=== PATIENT | male | born 1975 | race Caucasian/White ===

== ENCOUNTER 2016-07-06 12:42 | Emergency (ER) ==
--- NOTE | 2016-07-06 14:16 | PROVIDER DOCUMENTATION ---
HPI-General Adult - General Source: patient - History of Present Illness -Gen Adult Nature of Presenting Problems: Pt is 40 y/o M presents to the ED with cough and congestion. Pt states symptoms started two days ago. Pt denies F. Pt states everyone is sick at home. Location of Pain/Injury: reports: generalized Pain Radiation: reports: no radiation Quality of Pain: reports: aching Severity: reports: mild Onset/Duration: reports: 2 days ago Timing: reports: still present, intermittent Context/Activities at Onset: reports: light activity Modifying Factors: improves with: nothing Associated Symptoms: reports: cough, sinus congestion/drainage (congestion) Similar Symptoms Previously?: Yes Recently seen or treated by another doctor?: No <Theresa Duncan - Last Filed: 07/06/16 14:13> <Lexy Novak - Last Filed: 07/06/16 14:41> - General Chief Complaint: Cold Symptoms Stated Complaint: HEADACHE/COUGH/DAR Time Seen by Provider: 07/06/16 14:07 Allergies/Adverse Reactions: Patient Allergies Allergy/AdvReac Type Severity Reaction Status Date / Time No Known Allergies Allergy Verified 04/07/16 20:57 Home Medications: Home Medication List Medication Instructions Recorded Confirmed Last Taken Type Albuterol Sulfate Inhaler 2 puff INH [id number] 07/24/13 04/07/16 04/07/16 05:30 History [Ventolin Hfa] Amoxicillin 500 mg PO BID #14 tablet 07/06/16 Unknown Rx Cetirizine [Zyrtec] 10 mg PO DAILY #20 tablet 07/06/16 Unknown Rx Methylprednisolone [Medrol Dosepak] 4 mg PO DIRECTED #1 package 07/06/16 Unknown Rx Review of Systems - Adult - REVIEW OF SYSTEMS - ADULT Constitutional: denies: chills, fever Eyes: denies: blurred vision, double vision Ears, Nose, Mouth & Throat: reports: sinus problem (congestion). denies: ear pain, nose pain, throat pain Cardiovascular: reports: irregular heart rate (marybel). denies: chest pain, heart murmur Respiratory: reports: cough. denies: shortness of breath, wheezing Gastrointestinal: denies: abdominal pain, diarrhea, nausea, vomiting Genitourinary: denies: dysuria, hematuria Musculoskeletal: denies: bone pain, joint swelling, neck pain Integumentary: denies: hives, itching Neurological: denies: dizziness/vertigo, headache/migraines Psychiatric: reports: no symptoms reported Endocrine: reports: no symptoms reported Hematologic/Lymphatic: reports: no symptoms reported Allergic/Immunologic: reports: no symptoms reported All Other Systems: Reviewed and Negative <DakotaTheresa - Last Filed: 07/06/16 14:13> Past History - Adult - PAST MEDICAL HISTORY-ADULT Review of Records: reports: Nursing Assessment Review, Medications Reviewed, Social history reviewed & non-contributory. Major Childhood Illnesses: reports: denies history Cardiovascular: reports: other (bradycardia) Respiratory: reports: asthma, COPD Gastrointestinal: reports: denies history Obstetrical/Gynecological: reports: denies history Genitourinary: reports: denies history Musculoskeletal: reports: denies history Neurological: reports: denies history Endocrine/Immune: reports: denies history Other Conditions: reports: denies history - PRIOR SURGERIES/PROCEDURES Surgical/Procedure History: reports: none - IMMUNIZATION STATUS Childhood Immunizations: See Nurse Assessment Flu Vaccine: See Nurse Assessment - FAMILY HISTORY Family History: reviewed, not pertinent - SOCIAL HISTORY Smoking: cigarettes, greater than 1 pack/day Provider spent 3-5 mins advising pt. on dangers of tobacco.: discussed smoking cessation Substance Use: denies Living Situation: family <Theresa Duncan - Last Filed: 07/06/16 14:13> Physical Exam-General - PHYSICAL EXAM-ADULT Initial Vital Signs Reviewed: Yes - CONSTITUTIONAL General Appearance: appears well, alert, no apparent distress - EYES Eyes: PERRL/EOMI, pink conjunctivae, fundi clear, no AV nicking - HEAD, EARS, NOSE, MOUTH & THROAT HENMT: normocephalic/atraumatic, moist mucous membranes, normal ENT inspection, TMs normal, pharynx normal - NECK Neck: non-tender, full range of motion, supple, normal inspection - RESPIRATORY Respiratory: chest non-tender, normal breath sounds, no pleuratic chest pain, no respiratory distress, no accessory muscle use, rhonchi - CARDIOVASCULAR Cardiovascular: normal peripheral pulses, no edema, no gallop, no JVD, no murmur , bradycardia - GASTROINTESTINAL (ABDOMEN) Abdominal Exam: normal bowel sounds, non tender, soft, no organomegaly, no pulsatile mass - LYMPHATIC Lymphatic: no adenopathy - MUSCULOSKELETAL Back Exam: normal inspection, no CVA tenderness, no vertebral tenderness Extremity: normal range of motion, non-tender, normal gait, normal inspection, no pedal edema, no calf tenderness, normal capillary refill - SKIN Integumentary: normal color, normal turgor, warm/dry - NEUROLOGIC Neurologic: grossly normal - PSYCHIATRIC Psych/Mental Status: normal mood/affect, oriented x 3 <Theresa Duncan - Last Filed: 07/06/16 14:13> Progress - PLAN OF CARE/RESULTS Progress/Plan/Lab Results: Discussed results and plan of care with patient. Patient agrees with plan and verbalizes understanding. Vital Signs Temp Pulse Resp BP Pulse Ox 07/06/16 13:01 98 F 51 L 18 134/63 99 No Known Allergies Allergy (Verified 04/07/16 20:57) Albuterol Sulfate Inhaler [Ventolin Hfa] 2 puff INH [id number] 07/24/13 Orders Category Date Time Status CHEST-2 VIEWS [RAD] Stat Exams 07/06/16 14:10 Taken - XRAY 1 XRAY Study: Chest XRAY Interpretation: NAD (Kareen) <Lexy Novak - Last Filed: 07/06/16 14:41> Departure <Theresa Duncan - Last Filed: 07/06/16 14:13> - Departure Time of Disposition Order: 14:39 Certified Medical Emergency: Emergent <Lexy Novak - Last Filed: 07/06/16 14:41> - Departure DIAGNOSIS: Sinus congestion, Cough Disposition: HOME 01 Condition: Stable Additional Instructions: Follow up with primary care physician Take medications as directed Return to ED for any concerns or worsening of symptoms ED Follow Up Instructions: You have been treated by a care provider in the Emergency Department. These instructions are being provided to you so you can have an understanding of how to care for yourself upon discharge. Upon discharge from the Emergency Department, you are responsible for making arrangements for follow-up care by a physician of your choice. Take all prescribed medications as directed. Return to the Emergency Department immediately for any new or worsening symptoms. You may call the Physician Referral phone number at [phone] to obtain a list of Physicians who are taking new patients. Prescriptions: Amoxicillin 500 mg PO BID #14 tablet Methylprednisolone [Medrol Dosepak] 4 mg PO DIRECTED #1 package Cetirizine [Zyrtec] 10 mg PO DAILY #20 tablet Attestation - Scribe Verification/Attestation Scribe:: Theresa Duncan Acting as Scribe for:: Lexy Novak Scribe documention review:: This chart was documented by a scribe and accurately reflects the service the provider performed and the decisions made by the provider. <Theresa Duncan - Last Filed: 07/06/16 14:13> - Physician/ LEONOR Attestation Patient care was provided by Advanced Practice Provider:: Yes Advanced Practice Provider:: Lexy Novak Advanced Practice Provider documentation review:: The Mid-level provider documentation, treatment plan and medical decision making was reviewed by the physician who agrees with all treatment and medical decision making by the MLP. <Lexy Novak - Last Filed: 07/06/16 14:41> Physician Attestation
[2016-07-06] MEDS ORDERED: AMOXIL PO ONE (14:39)
[2016-07-06] MEDS ORDERED: ZYRTEC PO ONE (14:39)
[2016-07-06] MEDS ORDERED: DECADRON IM ONE (14:39)
[2016-07-06 14:52] VITALS: BP 122/76
--- NOTE | 2016-07-06 18:13 | Diag Imaging Result Document ---
PROCEDURE NAME: CHEST-2 VIEWS - 07/06/2016 CHEST X-RAY 2 VIEWS: COMPARISON: 04/07/2016. FINDINGS: The lungs are normally expanded and clear. Heart size and mediastinal contours are normal. No pneumothorax or pleural effusion. IMPRESSION: Negative exam.
== END 2016-07-06 15:10 | disposition home or self-care (01) ==
LOC: P.ED 12:42
DX: R09.81 Nasal congestion (principal); R05 Cough; R51 Headache; R00.1 Bradycardia, unspecified; J45.909 Unspecified asthma, uncomplicated; J44.9 Chronic obstructive pulmonary disease, unspecified; F17.210 Nicotine dependence, cigarettes, uncomplicated; Z71.6 Tobacco abuse counseling
CPT/HCPCS: 71020

== ENCOUNTER 2016-12-23 12:40 | Inpatient (IN) ==
[2016-12-23] MEDS: PROTONIX IV SCH (13:30)
[2016-12-23] MEDS ORDERED: ASPIRIN PO STA (13:30)
[2016-12-23] MEDS ORDERED: NITROGLYCERIN SL PRN (13:30)
--- NOTE | 2016-12-23 13:43 | PROVIDER DOCUMENTATION ---
HPI-Chest Pain - General Chief Complaint: Chest Pain Stated Complaint: PRESSURE IN CHEST/ELEVATED HEART RATE Time Seen by Provider: 12/23/16 13:09 Source: patient Allergies/Adverse Reactions: Patient Allergies Allergy/AdvReac Type Severity Reaction Status Date / Time No Known Allergies Allergy Verified 09/28/16 16:30 Home Medications: Home Medication List Medication Instructions Recorded Confirmed Last Taken Type Albuterol Sulfate Inhaler 2 puff INH [id number] 07/24/13 09/28/16 1 Week Ago History [Ventolin Hfa] Cyclobenzaprine [Flexeril] 10 mg PO TID #20 tablet 09/28/16 Unknown Rx Meloxicam [Mobic] 7.5 mg PO DAILY PRN PRN #15 tablet 09/28/16 Unknown Rx - History of Present Illness-CP Nature of Presenting Problem: Mrs. Saab presents today with chest pain - located on the left side without radiation to the left arm, neck or jaw. States he was asleep and the chest pain woke him up from sleep around 3 am. At that time he felt as "if his heart will jump out of his chest". Lasted about an hour and it was sharp in nature. He is a 1.5 pack a day smoker. Previous history of sinus bradycardia worked up at [facility]. No previous such episodes that woke him up from sleep. 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 No pain present at this time but complains of chest discomfort. Location: reports: other (left anterior chest wall) Chest Pain Radiation: reports: no radiation Quality of Pain: reports: sharp, stabbing Severity in ED: mild Onset/Duration: abrupt, this morning Timing: still present (mostly described as discomfort.) Review of Systems - Adult - REVIEW OF SYSTEMS - ADULT Constitutional: reports: no symptoms reported. denies: chills, fever Eyes: reports: no symptoms reported Ears, Nose, Mouth & Throat: reports: no symptoms reported Cardiovascular: reports: see HPI, chest pain, irregular heart rate, palpitations . denies: edema, heart murmur, orthopnea, poor circulation, syncope Respiratory: reports: see HPI, chronic cough. denies: hemoptysis, wheezing Gastrointestinal: reports: no symptoms reported Genitourinary: reports: no symptoms reported Musculoskeletal: reports: no symptoms reported Integumentary: reports: no symptoms reported Neurological: reports: no symptoms reported Psychiatric: reports: no symptoms reported Endocrine: reports: no symptoms reported Hematologic/Lymphatic: reports: no symptoms reported Allergic/Immunologic: reports: no symptoms reported All Other Systems: Reviewed and Negative Past History - Adult - PAST MEDICAL HISTORY-ADULT Review of Records: reports: Old Records Reviewed (bradycardia--worked up at [facility].), Nursing Assessment Review, Medications Reviewed, Social history reviewed & non-contributory. Major Childhood Illnesses: reports: denies history Cardiovascular: reports: other (bradycardia) Respiratory: reports: asthma, COPD Gastrointestinal: reports: denies history Obstetrical/Gynecological: reports: denies history Genitourinary: reports: denies history Musculoskeletal: reports: denies history Neurological: reports: denies history Psychiatric: reports: denies history Endocrine/Immune: reports: denies history Other Conditions: reports: denies history - PRIOR SURGERIES/PROCEDURES Surgical/Procedure History: reports: none - IMMUNIZATION STATUS Childhood Immunizations: See Nurse Assessment Flu Vaccine: See Nurse Assessment - FAMILY HISTORY Family History: reviewed, not pertinent - SOCIAL HISTORY Smoking: cigarettes Provider spent 3-5 mins advising pt. on dangers of tobacco.: Discussed manners to quit use, and f/u contacts for add'l counseling. Physical Exam-General - PHYSICAL EXAM-ADULT Initial Vital Signs Reviewed: Yes - CONSTITUTIONAL General Appearance: appears well, alert, no apparent distress. negative: severe distress - EYES Eyes: PERRL/EOMI - HEAD, EARS, NOSE, MOUTH & THROAT HENMT: normocephalic/atraumatic, moist mucous membranes - NECK Neck: non-tender, full range of motion - RESPIRATORY Respiratory: chest non-tender, lungs clear - CARDIOVASCULAR Cardiovascular: normal peripheral pulses (sinus bradycardia) - GASTROINTESTINAL (ABDOMEN) Abdominal Exam: normal bowel sounds, non tender - LYMPHATIC Lymphatic: no adenopathy - MUSCULOSKELETAL Back Exam: normal inspection Extremity: normal range of motion - SKIN Integumentary: normal color - NEUROLOGIC Neurologic: grossly normal - PSYCHIATRIC Psych/Mental Status: normal mood/affect, normal thought content, normal thought process Progress - PLAN OF CARE/RESULTS Progress/Plan/Lab Results: Vital Signs - 8 hr 12/23/16 12:48 Temperature 98.5 F Pulse Rate 49 L Respiratory Rate 18 Blood Pressure 135/75 O2 Sat by Pulse Oximetry 99 Laboratory Results - last 24 hr 0812/23/16 12/23/16 13:39 13:39 13:39 WBC RBC Hgb Hct MCV MCH MCHC RDW Std Deviation Plt Count MPV Immature Gran % (Auto) Neut % (Auto) Lymph % (Auto) [place] % (Auto) Eos % (Auto) Baso % (Auto) Immature Gran # (Auto) Neut # (Auto) Lymph # (Auto) [place] # (Auto) Eos # (Auto) Baso # (Auto) PT 10.3 INR 0.98 PTT (Actin FS) 26.0 Sodium 139 Potassium 4.2 Chloride 103 Carbon Dioxide 26 Anion Gap 10 BUN 13 Creatinine 1.1 Estimated GFR/1.73 m2 > 60 BUN/Creatinine Ratio 12 Glucose 84 Calculated Osmolality 277 Calcium 9.2 Total Bilirubin 0.41 AST 13 ALT 13 Alkaline Phosphatase 62 Creatine Kinase Troponin T Mhr-R-Lrruguwulwr Pept 75 Total Protein 7.1 Albumin 4.4 Globulin 2.7 Albumin/Globulin Ratio 1.6 TSH 12/23/16 12/23/16 12/23/16 13:39 13:39 13:39 WBC RBC Hgb Hct MCV MCH MCHC RDW Std Deviation Plt Count MPV Immature Gran % (Auto) Neut % (Auto) Lymph % (Auto) [place] % (Auto) Eos % (Auto) Baso % (Auto) Immature Gran # (Auto) Neut # (Auto) Lymph # (Auto) [place] # (Auto) Eos # (Auto) Baso # (Auto) PT INR PTT (Actin FS) Sodium Potassium Chloride Carbon Dioxide Anion Gap BUN Creatinine Estimated GFR/1.73 m2 BUN/Creatinine Ratio Glucose Calculated Osmolality Calcium Total Bilirubin AST ALT Alkaline Phosphatase Creatine Kinase 169 Troponin T < 0.010 Htq-F-Kwshohsunfs Pept Total Protein Albumin Globulin Albumin/Globulin Ratio TSH 1.86 12/23/16 13:39 WBC 8.52 RBC 4.89 Hgb 14.8 Hct 42.0 MCV 85.9 MCH 30.3 MCHC 35.2 RDW Std Deviation 12.4 Plt Count 262 MPV 11.7 H Immature Gran % (Auto) 0.0 Neut % (Auto) 67.5 Lymph % (Auto) 22.8 [place] % (Auto) 5.9 Eos % (Auto) 3.3 Baso % (Auto) 0.5 Immature Gran # (Auto) 0.00 Neut # (Auto) 5.76 Lymph # (Auto) 1.94 [place] # (Auto) 0.50 Eos # (Auto) 0.28 Baso # (Auto) 0.04 PT INR PTT (Actin FS) Sodium Potassium Chloride Carbon Dioxide Anion Gap BUN Creatinine Estimated GFR/1.73 m2 BUN/Creatinine Ratio Glucose Calculated Osmolality Calcium Total Bilirubin AST ALT Alkaline Phosphatase Creatine Kinase Troponin T Oeg-J-Wppzmkjwtng Pept Total Protein Albumin Globulin Albumin/Globulin Ratio TSH Orders Category Date Time Status Regular Diet Diet 12/23/16 15:55 Active CHEST-2 VIEWS [RAD] Stat Exams 12/23/16 13:31 Completed CBC WITH ELECTRONIC DIFF [HEME] Stat Lab 12/23/16 13:39 Completed CK PROFILE [SP CHEM] Q8H Lab 12/23/16 13:39 Completed CK PROFILE [SP CHEM] Q8H Lab 12/23/16 21:45 Ordered CK PROFILE [SP CHEM] Q8H Lab 12/24/16 05:45 Ordered COMPREHENSIVE METABOLIC PANEL [CHEM] Stat Lab 12/23/16 13:39 Completed DIRECT LDL [LIPIDS] Routine Lab 12/24/16 06:00 Ordered PRO B-NATRIURETIC PEPTIDE Stat Lab 12/23/16 13:39 Completed PROTIME WITH INR [COAG] Stat Lab 12/23/16 13:39 Completed PTT [COAG] Stat Lab 12/23/16 13:39 Completed TROPONIN T Q8H Lab 12/23/16 13:39 Completed TROPONIN T Q8H Lab 12/23/16 21:45 Ordered TROPONIN T Q8H Lab 12/24/16 05:45 Ordered TSH Stat Lab 12/23/16 13:39 Completed URINALYSIS W/POSS RFLX CULT-1 [URINALYSIS] Stat Lab 12/23/16 16:19 Uncollected URINE DRUG SCREEN Stat Lab 12/23/16 16:19 Uncollected Aspirin Med 12/23/16 13:30 Discontinued 325 mg PO STAT STA Nitroglycerin Sl [Nitroglycerin] Med 12/23/16 13:30 Active 0.4 mg SL Q5M PRN PRN Pantoprazole [Protonix] Med 12/23/16 13:30 Active 40 mg IV Q12H Sodium Chloride 0.9% Med 12/23/16 13:30 Active 10 ml INJ DIRECTED EKG [EKG] Stat Ther 12/23/16 12:47 Draft Transfer/Admit Order [TRANSFER] Routine Transfer 12/23/16 16:12 Ordered Result Diagrams: 12/23/16 13:39 12/23/16 13:39 - REASSESSMENT Reassessment #1 Time Reassessed: 15:26 (Aicha continues to state that he feels pressure in his chest. Labs WNL at this time. ) Status: unchanged Reassessment #2 Time Reassessed: 16:31 (Patient will be admitted to Dr. Evangelista) Status: unchanged - EKG 1 Time of EKG reading by physician:: 12:57 EKG Interpretation (*Must complete 3 of following elements*): Abnormal Rate: 43 Rhythm: sinus Prior EKG Comparison: unchanged from prior (sinus marybel --similar to EKG from 2015) - CONSULTS/PCP/HOSPITALIST Notification #1 *Consult/PCP/Hospitalist*: Dr. Gupta - Cardiology Time Discussed: 15:06 Reason/Comments: Sinus bradycardia with symptoms of fatigue and pressure in chest. Consult Disposition: other (Stated to call hospitalist and if considered to consult Dr. Gupta via hospitalist.) #2 Consult: Rianna ROMERO for Hospitalist service Time Discussed: 15:29 (Discussed to admit in observation) Consult Disposition: Will see in ED Departure - Departure Date of Disposition Decision: 12/23/16 Time of Disposition Decision: 16:31 DIAGNOSIS: Chest pain at rest Disposition: ADMITTED INPATIENT 09 Certified Medical Emergency: Emergent Condition: Fair Referrals and Follow-Ups: Rosendo Skinner [Primary Care Provider] - - Critical Care Note This patient required my direct & personal management of CC.: No Attestation - Physician/ LEONOR Attestation Patient care was provided by Advanced Practice Provider:: No The physician spent face to face time with patient:: Yes Advanced Practice Provider documentation review:: Supervising physician onsite and consulted in the evaluation and care of this patient. The physician did have a face to face encounter with the patient.
--- NOTE | 2016-12-23 13:48 | EKG Report ---
Test Performed on : 12/23/2016 12:55:14 PM Test Reason : CP Blood Pressure : / mmHG Vent. Rate : 043 BPM Atrial Rate : 043 BPM P-R Int : 164 ms QRS Dur : 088 ms QT Int : 478 ms P-R-T Axes : 059 051 041 degrees QTc Int : 403 ms Marked sinus bradycardia. Abnormal ECG When compared with ECG of 07-APR-2016 21:12, No significant change was found Unconfirmed Result
--- NOTE | 2016-12-23 13:53 | Diag Imaging Result Doc PS360 ---
CHEST-2 VIEWS - 12/23/2016 INDICATION: Chest Pain TECHNIQUE: COMPARISON: 09/28/2016 FINDINGS: The lungs are normally expanded and clear. Heart size and mediastinal contours are normal. No pneumothorax or pleural effusion. IMPRESSION: Negative exam. Electronically signed by Jn Mathur 12/23/2016 1:50 PM
[2016-12-23 13:57] LABS: INR 0.98; PROTIME 10.3 Seconds (9.2-11.7)
[2016-12-23 14:07] LABS: AGAP 10; ALBUMIN 4.4 g/dL (3.5-5.0); ALKALINE PHOSPHATASE 62 U/L (32-122); BUN 13 mg/dL (8-22); CALCIUM 9.2 mg/dL (8.8-10.2); CHLORIDE 103 mmol/L (98-107); COSMO 277; GOT 13 U/L (10-34); GPT 13 U/L (10-44); POTASSIUM 4.2 mmol/L (3.5-5.1); SODIUM 139 mmol/L (136-145); TCO2 26 mmol/L (25-35); TOTAL BILIRUBIN 0.41 mg/dL (0.20-1.00); TOTAL PROTEIN 7.1 g/dL (6.3-8.3)
[2016-12-23] MEDS: SODIUM CHLORIDE 0.9% INJ SCH (14:29)
[2016-12-23 15:34] LABS: MANUAL DIFF NEEDED? NO
[2016-12-23 16:01] LABS: BASO% 0.5 % (0.0-0.8); EOS# 0.28 X1000 (0.0-0.7); EOS% 3.3 % (0.0-10.0); HEMOGLOBIN 14.8 g/dL (14.0-18.0); LYMPH# 1.94 X1000 (1.2-3.4); LYMPH% 22.8 % (20.5-51.1); MCH 30.3 PG (27-31); MCHC 35.2 g/dL (33-37); MCV 85.9 FL (81-99); MONO% 5.9 % (1.7-9.3); MPV 11.7 FL (7.4-10.4); NEUT% 67.5 % (42.2-75.2); PLT 262 X1000 (130-400); RBC 4.89 XMIL (4.7-6.1)
--- NOTE | 2016-12-23 17:06 | HISTORY AND PHYSICAL ---
HISTORY: A 41-year-old, he presented to the emergency room this evening. He stated about 6 o'clock this morning he noted palpitations, seemed to be rapid and he had pressure-type chest pain, and it seemed to hurt with pulsations. He denies fever or chills. He thinks that these palpitations lasted over an hour and he had some residual chest pain. No radiation into his arm or into his neck, but he described an episode previously in the last couple of weeks where he hurt on his simply left side and then he had some shooting pain on his right side from his arm and his right leg, and they would last for a while and go away. No focal neurologic deficits appreciated. He denies any pleuritic pain. No cough or sputum production. He has not had any chest trauma. 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 He denies any weight gain or loss. PAST MEDICAL HISTORY: Pretty unremarkable. For last 3 years, he has been he has been concerned about his weakness and fatigue and his primary care physician checked an EKG and found bradycardia. He has been seen and evaluated by Dr. 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 I see where he has had an echocardiogram on 02/14/2015. At that time, essentially normal echocardiogram, ejection fraction 60-65%, normal left ventricular cavity size. No valvular dysfunction. He had a myocardial perfusion test on 06/19/2015 and it was a negative test and a good test. Left ventricular ejection fraction estimated at 71% at that time. Normal myocardial perfusion. Did not see any sign of diastolic dysfunction. MEDICATIONS: He is not on medication. Does not like to take medications. 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 He is . He says he smoked for many years. Quit for a while, and then recently started back a pack and a half. He denies alcohol except for occasional on the weekend, maybe 1 or 2 beers, in his words "to flush out his kidneys". REVIEW OF SYSTEMS: General: No weight gain or loss. No fever or chills. His main complaint is just fatigue and poor energy level. He does not have a problem at work. He states he makes himself get his work done. HEENT: Denies any change in his hearing or taste. Oral and nasal mucosa, upper airway, no complaints. Respiratory: No increased work of breathing or dyspnea. No pleuritic pain. No cough, sputum production. Cardiovascular: As above. Tachycardiac palpitations that seem to be regular this morning, but has been diagnosed with a sinus bradycardia for the last 3 years. GI/: No gross hematochezia. No complaints of change in bowels. No gross hematuria or dysuria. Musculoskeletal/Neurologic: No focal complaints. No injuries. No particular arthralgia or myalgia or muscle spasms. PHYSICAL EXAMINATION: VITAL SIGNS: Temperature 98.5 degrees, pulse 49. EKG showed a pulse of 45, respirations 18, blood pressure 135/75, O2 saturation 99%. Weight 160 pounds. HEENT: Oral and nasal mucosa moist and red. Conjunctivae unremarkable. No thyromegaly and no thyroid nodules. Carotid pulses, radial pulses and femoral pulses 2+ and symmetrical. LUNGS: Clear in all lung christenesn, anterolateral and posterior. CARDIOVASCULAR: Regular rhythm and rate. PMI nondisplaced. No murmur or S3 appreciated. ABDOMEN: Soft, nontender. Positive bowel sounds all quadrants. SKIN: Warm and dry. No sign of rashes. VASCULATURE: As I stated, carotid, radial, femoral pulses 2+ and symmetrical. No abdominal or femoral bruits. No carotid bruits appreciated. LABORATORY DATA AND IMAGING: White count 8520, hematocrit 42, platelet count 262,000. Sodium 139, potassium 4.2, chloride 103, bicarbonate 26, BUN 13, creatinine 1.1. TSH is 1.86, albumin 4.4, ProTime 10.3, PTT is 26. His chest x-ray, negative exam, lungs normal expanded and clear. Heart and mediastinal contours were normal. No pneumothorax or pleural effusions. EKG shows sinus bradycardia. No ST-segment deviation. No ectopy appreciated. ASSESSMENT AND PLAN: 1. Sinus bradycardia. I am not sure if this is symptomatic. He seems to have pretty good work tolerance, but he is complaining of fatigue. He has already been evaluated in the past per Dr. Louise in [place]. He did have chest pain this morning. I do not see any evidence to suggest it is cardiac ischemia as well as low risk factors. We will check his cholesterol in the morning. We will check serial CPK and troponin, serial Electrocardiograms. I ask Cardiology to see. Plan tentatively to do a Lexiscan GXT in the morning and check an echocardiogram, although he has had an echocardiogram in 2014. We will check another one. He had a myocardial perfusion scan in May 2015, which was normal. 2. Fatigue and poor energy. We will check his thyroid, B12 and folate. We will check a.m. cortisol level and see if he has any evidence of hypothyroidism. Based on his laboratory, he has no sign of anemia. Electrolytes unremarkable and his renal function appears to be good. 3. Nutritional state looks good. Albumin 4.4. He has not lost any weight. He is complaining he is hungry. He has not eaten most of the day. He reports that he does not eat breakfast. He eats lunch and supper. Eats 2 meals a day. cc: Kishore Evangelista MD
--- NOTE | 2016-12-23 17:49 | CONSULTATION ---
DATE OF CONSULTATION: 12/23/2016 HISTORY OF PRESENT ILLNESS: Mr. Thaddeus Saab is a 41-year-old gentleman who last year or a year before had seen us and had a stress test done at [place] which was normal and subsequently he had been doing well. He stopped smoking and he has restarted smoking. He comes with complaints of having sharp episodes of chest pain. These episodes he describes as sharp and at times pressure-like sensation. He also has shortness of breath from COPD. He uses inhalers on a p.r.n. basis. Symptoms of chest pain not radiating to the back or down the arm. Describes as pressure-like, retrosternal. There are no palpitations. There is no dizziness or syncope. REVIEW OF SYSTEMS: A 14 point review of systems was done.GI: There is no history of nausea, vomiting, diarrhea. There is no history of hematemesis or melena. Central nervous system: No focal weakness to suggest a CVA or TIA. Genitourinary: There is no dysuria or hematuria. Respiratory: There is no history of cough, expectoration, hemoptysis. There is no history of fevers or chills. SOCIAL HISTORY: Patient smokes. There is no history of alcohol abuse. PAST MEDICAL HISTORY: 1. He has COPD. In the past he has been on Spiriva hand-held and fluticasone propionate inhalers. 2. Bradycardia which he has been having since 2009. ALLERGIES: He is not known to be allergic to any medications. CURRENT MEDICATIONS: At home included also Protonix. PHYSICAL EXAMINATION: Vital Signs: Blood pressure was 135/75. Cardiovascular symptoms: Jugular venous pressure was normal. First and second heart sounds were heard. There is no S3, S4, or gallop. Respiratory System: Normal air entry. There are no crepitations or rhonchi. Abdomen: Soft, nontender. There was no guarding or rigidity. Bowel sounds heard. Central nervous system: Alert and moving all 4 extremities. Extremities: Examination of the extremities revealed no pedal edema. HEENT: Atraumatic, normocephalic. Pupils were equal and reacting to light. ASSESSMENT AND PLAN: 1. Mr. Thaddeus Saab has a history of chronic obstructive pulmonary disease, was on inhalers in the past, and has gastroesophageal reflux disease, comes with complaints of chest pain sharp in character, at times pressure-like sensation. He had quit smoking but restarted smoking. I have advised him to stop smoking. 2. As far as and further assessment is concerned, cardiac enzymes were negative. We will set him up to undergo a CT angiogram of his coronary arteries to rule out obstructive coronary artery disease. Will also get an echocardiogram to assess cardiac and valvular function. He is on aspirin and his electrocardiogram revealed sinus bradycardia. He has had bradycardia in the past since 2009. Thank you for the consult. We will follow the hospital course. cc: Torey Gupta MD
[2016-12-23 17:55] LABS: URINE CULTURE NEEDED? NO; URINE MICRO REVIEW NEEDED? NO; URINE SOURCE CLEAN CATCH
[2016-12-23 18:03] LABS: BILIRUBIN URINE NEGATIVE (NEGATIVE); BLOOD URINE NEGATIVE (NEGATIVE); COLOR YELLOW; GLUCOSE URINE NEGATIVE (NEGATIVE); LEUKOCYTES URINE NEGATIVE (NEGATIVE); NITRITE URINE NEGATIVE (NEGATIVE); PROTEIN URINE NEGATIVE (NEGATIVE); SP GRAVITY URINE 1.015; TURBIDITY URINE CLEAR (CLEAR); UROBILINOGEN URINE NORMAL (NORMAL)
[2016-12-23 18:05] LABS: UR EPITHELIAL CELLS <10 /HPF (<10); URINE BACTERIA NEGATIVE /HPF; URINE RBC <10 /HPF (<10); URINE WBC <10 /HPF (<10)
[2016-12-23 18:38] LABS: UR AMPHETAMINES QUAL NONE DETECTED (NONE DETECT); UR BARBITUATES QUAL NONE DETECTED (NONE DETECT); UR BENZODIAZEPIN QUAL NONE DETECTED (NONE DETECT); UR CANNABINOIDS QUAL NONE DETECTED (NONE DETECT); UR COCAINE QUAL NONE DETECTED (NONE DETECT); UR METHADONE QUAL NONE DETECTED (NONE DETECT); UR OPIATES QUAL NONE DETECTED (NONE DETECT); UR OXYCODONE QUAL NONE DETECTED (NONE DETECT); UR PCP QUAL NONE DETECTED (NONE DETECT)
[2016-12-23] MEDS ORDERED: ZOFRAN IV PRN (19:19)
[2016-12-23] MEDS ORDERED: TYLENOL PO PRN (19:19)
--- NOTE | 2016-12-23 21:18 | EKG Report ---
Test Performed on : 12/23/2016 8:15:31 PM Test Reason : chest pain Blood Pressure : / mmHG Vent. Rate : 041 BPM Atrial Rate : 041 BPM P-R Int : 000 ms QRS Dur : 090 ms QT Int : 484 ms P-R-T Axes : 000 059 047 degrees QTc Int : 399 ms sinus bradycardia Junctional ST depression, probably normal Abnormal ECG When compared with ECG of 23-DEC-2016 12:55, (Unconfirmed) Confirmed by Jimi Hughes MD ([id number]) on 12/30/2016 6:52:58 PM
[2016-12-24] MEDS: PROTONIX IV SCH ×2 (01:38→14:02)
[2016-12-24 06:09] LABS: MANUAL DIFF NEEDED? NO
[2016-12-24 06:21] LABS: BASO% 0.6 % (0.0-0.8); EOS# 0.35 X1000 (0.0-0.7); EOS% 4.8 % (0.0-10.0); HEMATOCRIT 42.6 % (42.0-52.0); HEMOGLOBIN 14.7 g/dL (14.0-18.0); IMM GRAN# 0.01 X1000 (0.0-0.04); IMM GRAN% 0.1 % (0.0-0.5); LYMPH# 1.59 X1000 (1.2-3.4); MCH 29.7 PG (27-31); MCHC 34.5 g/dL (33-37); MCV 86.1 FL (81-99); MONO% 6.9 % (1.7-9.3); MPV 11.1 FL (7.4-10.4); NEUT% 65.6 % (42.2-75.2); PLT 233 X1000 (130-400); RBC 4.95 XMIL (4.7-6.1)
[2016-12-24 06:30] LABS: HEMOGLOBIN A1C 4.8 % (4.8-6.0)
[2016-12-24 06:33] LABS: AGAP 10; ALBUMIN 4.2 g/dL (3.5-5.0); ALKALINE PHOSPHATASE 59 U/L (32-122); BUN 16 mg/dL (8-22); CALCIUM 8.8 mg/dL (8.8-10.2); CHLORIDE 104 mmol/L (98-107); COSMO 275; GOT 10 U/L (10-34); GPT 12 U/L (10-44); POTASSIUM 4.3 mmol/L (3.5-5.1); SODIUM 137 mmol/L (136-145); TCO2 23 mmol/L (25-35); TOTAL PROTEIN 6.8 g/dL (6.3-8.3)
[2016-12-24 06:41] LABS: FREE T4 1.04 ng/dL (0.93-1.70)
[2016-12-24 07:28] LABS: INR 0.93 (0.86-1.15); PROTIME 13.2 Seconds (12.1-15.5)
[2016-12-24 07:29] LABS: PTT PL 28.6 Seconds (22.6-43.9)
[2016-12-24] MEDS ORDERED: LOVENOX SUBQ SCH (08:00)
--- NOTE | 2016-12-24 08:37 | Diag Imaging Result Doc PS360 ---
EXAM: CT ANGIOGRAM HEART W/WO CONT INDICATION: chest pain TECHNIQUE: Cardiology over read COMPARISON: None. FINDINGS: The heart is not enlarged. The aorta is grossly unremarkable. Although the contrast bolus is not optimized for the pulmonary arteries, no central luminary artery filling defects are identified. Limited views of the lung parenchyma reveals a cluster of small nodules in the anterior segment of the right upper lobe that can be seen on image 48 of series 5. The largest nodule measures up to 5.4 mm. They exhibit a slight tree-in-bud configuration. Statistically, they are very likely inflammatory nodules/noncalcified granulomata. If clinically warranted, consider follow-up based on Fleischner Society criteria. IMPRESSION: 1.Small cluster of noncalcified nodules in the right upper lobe as detailed above. 2.Please see cardiology report for coronary artery details. Electronically signed by Ramos Pretty 12/24/2016 8:35 AM
[2016-12-24] MEDS ORDERED: ASPIRIN PO SCH ×2 (09:00)
[2016-12-24] MEDS ORDERED: NITROGLYCERIN LINGUAL SPRAY ONE (12:06)
--- NOTE | 2016-12-24 13:18 | CTA CORONARY ---
PROCEDURE NAME: - PROCEDURE: CT coronary angiography, CT left ventriculography. TECHNIQUE: Informed consent was obtained from the patient. Intravenous access was established. 90 mL of iodinated contrast was given per standard protocol. Images were acquired at 0.6 mm multislice intervals, presented for review. FINDINGS: 1. Calcium score was 0. Left ventricular ejection fraction 58%. Pulmonary veins, 2 superior, 2 inferior, were normal. 2. Pulmonary artery from the proximal presented segment did not reveal any evidence of obstruction. 3. Ascending aorta was normal. There was no dissection noted. 4. Aortic valve leaflets are trileaflet. 5. Left atrium was normal. CORONARY ANATOMY: 1. The left main artery was a large vessel and was normal. The left anterior descending artery in its proximal and distal portion was normal and distally coursed around to the apex slightly tortuous without any significant stenosis. First diagonal artery was a small caliber long vessel and was normal. The 2nd diagonal artery was a small caliber vessel long and normal. 2. The circumflex arterial system revealed the proximal circumflex artery was normal. Distally the circumflex artery was a moderate size long vessel without any significant stenosis. 3. There was tiny obtuse marginal artery 1 and 2 which were normal. 4. The right coronary artery was a dominant vessel. The ostium of the right coronary artery had some luminal irregularities. 5. The mid distal right coronary artery was normal. Further distally, the right coronary artery gave rise to a posterior descending artery, which was a small to moderate size vessel, long without any significant stenosis. The posterolateral branch of the right coronary artery was a small-caliber vessel and normal. CONCLUSIONS: 1. No significant obstructive coronary artery disease. 2. Left ventricular ejection fraction 58%. 3. Calcium score was 0. 4. Right coronary artery was dominant. Has some ostial minor luminal irregularities. 5. Left main was normal. Left anterior descending artery was normal. The circumflex arterial system was a moderate-sized vessel, long, without any significant stenosis. RECOMMENDATIONS: Medical management, risk factor modification. cc: Torey Gupta MD
[2016-12-24] MEDS: SODIUM CHLORIDE 0.9% INJ SCH (14:02)
[2016-12-24 14:41] VITALS: BP 105/78
--- NOTE | 2016-12-24 16:30 | ECHO REPORT ---
ORDER DATE: 12/24/2016 INTERPRETING PHYSICIAN: Dr. Torey Gupta ECHOCARDIOGRAPHIC MEASUREMENTS: Interventricular septum: 1.0 cm. Left ventricular posterior wall: 0.8 cm. Diastolic diameter: 4.9 cm. Left atrium: 2.9 cm. Aortic root: 3 cm. SUMMARY OF THE 2-DIMENSIONAL IMAGIN. Normal left ventricular cavity size. Estimated ejection fraction of 55-60%. 2. Aortic valve leaflets are trileaflet. Mitral valve was normal. Tricuspid valve was normal. Pulmonic valve was normal. 3. There is no aortic stenosis. There is trivial aortic regurgitation. There is mild mitral regurgitation. Mild tricuspid regurgitation. Peak velocity across the tricuspid valve was 2.3 m/sec. 4. There is no pericardial effusion or obvious intracardiac mass or thrombus seen. cc: MD Rianna Mccauley CRNP
--- NOTE | 2016-12-25 10:35 | DISCHARGE SUMMARY ---
ADMISSION DATE: 12/23/2016 DISCHARGE DATE: 12/24/2016 DISCHARGE DIAGNOSIS: 1. Bradycardia. 2. Weakness. HOSPITAL COURSE: Briefly, this is a 41-year-old gentleman admitted on 12/23/[address] Evangelista, and Dr. Gupta was consulted for palpitations. He has had this issue for the last 3 years. He has been seen by Dr. Louise. He had an echocardiogram that was normal. Normal myocardial perfusion test in 2016. I am not sure what EP testing he has done. We do not have access to those records. In any case, he was admitted. Cardiology was consulted. They recommended a CTA the following day, which was completed on 12/24/2016, which was actually a great study. Calcium score was 0. EF 58% and there was absolutely no significant coronary artery disease. Discharge condition stable. He has maintained in the 40s to 60s but other than that, he has been pretty stable. I feel comfortable discharging him on 12/24/2016 again per recommended. DISCHARGE CONDITION: Stable. PLAN: [facility] was [facility]4 [facility]. DISCHARGE MEDICATIONS: None. PLAN: If he has persistent chest pain, may need to consider a GI evaluation. His PCP I am unfamiliar with, Dr. Rosendo Skinner, and will need to follow up for further management. cc: Lokesh John MD
== END 2016-12-24 17:10 | disposition home or self-care (01) ==
LOC: ED 12:40 → 3N 16:50 → SUATTDRO 16:50 → P.MEDSURG 18:22
PROVIDERS: ATTEND Internal Medicine